=== PATIENT | female | born 1970 | race Caucasian/White ===

== ENCOUNTER 2018-07-09 16:08 | Emergency (ER) | payer SELFPAY ==
[~2018-07-09] VITALS: Ht 172.7 cm; Wt 54.9 kg
[2018-07-09] MEDS ORDERED: SODIUM CHLORIDE 0.9% 1000ML 1,000 ML IV STA (16:25)
[2018-07-09] MEDS ORDERED: ONDANSETRON HCL INJ 2 MG/ML VIAL IV STA (16:25)
[2018-07-09 16:56] LABS: BASOPHILS # (AUTO) 0.1 (0.0-0.1); BASOPHILS % 0.8 % (0.0-1.0); EOSINOPHILS # (AUTO) 0.3 (0.0-0.4); EOSINOPHILS % 2.5 % (0.0-6.0); HEMATOCRIT 36.8 % (34.2-44.1); HEMOGLOBIN 12.9 g/dL (12.0-16.0); LYMPHOCYTES # (AUTO) 1.4 (1.0-3.2); LYMPHOCYTES % 13.8 % (18.0-39.1); MEAN CORPUSCULAR HEMOGLOBIN 40.8 pg (28-32); MEAN CORPUSCULAR HGB CONC 35.1 g/dL (31-35); MEAN CORPUSCULAR VOLUME 116.5 fL (81-99); MONOCYTES # (AUTO) 0.5 (0.2-0.8); NEUTROPHILS # (AUTO) 8.1 (2.1-6.9); NEUTROPHILS % 77.4 % (38.7-80.0); PLATELET COUNT 266 x10e3/uL (140-360); RED BLOOD COUNT 3.16 x10e6/uL (3.6-5.1); RED CELL DISTRIBUTION WIDTH 12.9 % (11.7-14.4)
[2018-07-09 16:58] LABS: BILIRUBIN,URINE NEGATIVE (NEGATIVE); CLARITY,URINE SL CLOUDY (CLEAR); COLOR,URINE YELLOW (YELLOW); KETONES,URINE 1+ (NEGATIVE); LEUKOCYTE ESTERASE ,URINE TRACE (NEGATIVE); NITRITE,URINE NEGATIVE (NEGATIVE); PROTEIN,URINE DIPSTICK NEGATIVE (NEGATIVE); URINE UROBILINOGEN 0.2 mg/dL (0.2 - 1)
[2018-07-09 17:06] LABS: BACTERIA,URINE FEW /HPF; EPITHELIAL CELLS,URINE FEW /LPF; RENAL EPITHELIAL CELLS,URINE RARE
[2018-07-09 17:12] LABS: ALANINE AMINOTRANSFERASE 28 IU/L (0-55); ALBUMIN 4.1 g/dL (3.5-5.0); ALBUMIN/GLOBULIN RATIO 1.6 (0.8-2.0); ALKALINE PHOSPHATASE 78 IU/L (40-150); AMYLASE 80 U/L (25-125); ANION GAP 16.8 mmol/L (8-16); BLOOD UREA NITROGEN 7 mg/dL (7-26); BUN/CREATININE RATIO 9 (6-25); CALCIUM 10.1 mg/dL (8.4-10.2); CARBON DIOXIDE 22 mmol/L (22-29); CHLORIDE 101 mmol/L (98-107); CREATININE, SERUM 0.74 mg/dL (0.57-1.11); EST GLOMERULAR FILTRATION RATE > 60 ML/MIN (60-); GLUCOSE 90 mg/dL (74-118); LIPASE 49 U/L (8-78); POTASSIUM 3.8 mmol/L (3.5-5.1); SODIUM 136 mmol/L (136-145)
[2018-07-09] MEDS ORDERED: LORAZEPAM 1 MG TAB PO PRN (18:00)
[2018-07-09 18:24] VITALS: BP 142/88
== END 2018-07-09 18:30 | disposition home or self-care (01) ==
LOC: ER 16:08
DX: R11.2 Nausea with vomiting, unspecified (principal); R19.7 Diarrhea, unspecified; K52.9 Noninfective gastroenteritis and colitis, unspecified; F41.1 Generalized anxiety disorder; F31.9 Bipolar disorder, unspecified; F43.10 Post-traumatic stress disorder, unspecified
CPT/HCPCS: 36415; 80053; 81001; 82150; 83690; 85025; 99284; J7030; J2405

== ENCOUNTER 2018-08-17 12:33 | Emergency (ER) | payer SELFPAY ==
[~2018-08-17] VITALS: Ht 172.7 cm; Wt 54.9 kg
--- OUTSIDE RECORDS SUMMARY | 2018-08-17 12:35 | XMS REPORT | Clinical Summary ---
Author Author [facility] Address Unknown Phone Unavailable Care Team Providers Care Client Success Director Name Role Phone PCP Unavailable Allergies No Known Allergies Current Medications Not on file Active Problems Not on file Encounters Date Type Specialty Care Team Description 06/12/2018 Emergency Emergency Medicine after 08/16/2017 Social History Tobacco Use Types Packs/Day Years Used Date Never Assessed Sex Assigned at Date Recorded Not on file Last Filed Vital Signs Vital Sign Reading Time Taken Blood Pressure 120/85 06/12/2018 5:52 AM CDT Pulse 97 06/12/2018 5:52 AM CDT Temperature 37 C (98.6 F) 06/12/2018 5:52 AM CDT Respiratory Rate 18 06/12/2018 5:52 AM CDT Oxygen Saturation 98% 06/12/2018 5:52 AM CDT Inhaled Oxygen - - Concentration Weight - - Height - - Body Mass Index - - Plan of Treatment Health Maintenance Due Date Last Done Comments Cervical Cancer Scrn (3 1991 Yrs) Breast Cancer Scrn 2010 (Yearly) IMM Influenza Seasonal 07/05/2018 Oct to December (>/=19 yrs) Results Not on fileafter 08/16/2017
--- OUTSIDE RECORDS SUMMARY | 2018-08-17 12:35 | XMS REPORT ---
Author Author [facility] Address Unknown Phone Unavailable Care Team Providers Care Ticket Printer Name Role Phone Unavailable Unavailable Payers Payer Name Policy Type Policy Number Effective Date Expiration Date Problems This patient has no known problems. Allergies, Adverse Reactions, Alerts Allergy Name Allergy Type Status Severity Reaction(s) Onset Date Inactive Date Treating Clinician Comments No Known Allergies DA Active U 2018-06-20 00:00:00 No Known Allergies DA Active U 2018-06-16 00:00:00 No Known Allergies DA Active U 2018-06-04 00:00:00 No Known Allergies DA Active U 2018-05-21 00:00:00 Medications This patient has no known medications. Encounters Start Date/Time End Date/Time Encounter Type Admission Type Attending Clinicians Care Facility Care Department Encounter ID 2018-06-12 05:51:00 2018-06-12 05:51:00 Emergency [facility] [id number]
[2018-08-17] MEDS ORDERED: CYCLOBENZAPRINE HCL 10 MG TAB PO ONE (14:30)
[2018-08-17] MEDS ORDERED: KETOROLAC TROMETHAMINE 60 MG/2 ML VIAL IM ONE (14:30)
[2018-08-17 15:08] VITALS: BP 114/89
== END 2018-08-17 15:06 | disposition home or self-care (01) ==
LOC: ER 12:33
DX: G44.219 Episodic tension-type headache, not intractable (principal); R68.84 Jaw pain
CPT/HCPCS: 36415; 82948; 99283; J1885

== ENCOUNTER 2018-08-23 12:15 | Emergency (ER) | payer SELFPAY ==
[~2018-08-23] VITALS: Ht 172.7 cm; Wt 56.7 kg
--- OUTSIDE RECORDS SUMMARY | 2018-08-23 12:17 | XMS REPORT | Clinical Summary ---
Author Author [facility] Organization [facility] Address Unknown Phone Unavailable Care Team Providers Care Chlorine Operator Name Role Phone PCP Unavailable Allergies No Known Allergies Current Medications Not on file Active Problems Not on file Encounters Date Type Specialty Care Team Description 06/12/2018 Emergency Emergency Medicine after 08/22/2017 Social History Tobacco Use Types Packs/Day Years [...] December (>/=19 yrs) Results Not on fileafter 08/22/2017
--- OUTSIDE RECORDS SUMMARY | 2018-08-23 12:23 | XMS REPORT | Clinical Summary ---
Author Author [facility] Organization [facility] Address Unknown Phone Unavailable Care Team Providers Care Truck Washer Name Role Phone PCP Unavailable Allergies No [...]
[2018-08-23] MEDS ORDERED: SEROQUEL25 MG PO (12:35)
[2018-08-23] MEDS ORDERED: LITHIUM CARBON300 MG PO (12:35)
[2018-08-23] MEDS ORDERED: EFFEXOR XR150 MG (12:35)
== END 2018-08-23 14:30 | disposition left against medical advice (07) ==
LOC: ER 12:22
DX: R51 Headache (principal)

== ENCOUNTER 2018-11-22 08:03 | Emergency (ER) | payer SELFPAY ==
[~2018-11-22] VITALS: Ht 172.7 cm; Wt 56.7 kg
[~2018-11-22 08:03] MED LIST: EFFEXOR XR150 MG; LITHIUM CARBON300 MG PO; SEROQUEL25 MG PO
--- OUTSIDE RECORDS SUMMARY | 2018-11-22 08:05 | XMS REPORT | Clinical Summary ---
Author Author [facility] Organization [facility] Address Unknown Phone Unavailable Care Team Providers Care Molded Goods Controls Operator Name Role Phone PCP Unavailable Allergies No Known Allergies Medications Not on file Active Problems Not on file Encounters Care Team Description Date Type Specialty 06/12/2018 Emergency Emergency Medicine after 11/21/2017 Social History Date Tobacco Use Types Packs/Day Years Used Never Assessed Sex Assigned at Date Recorded Not on file Industry Job Start Date Occupation Not on file Not on file Not on file Travel End Travel History Travel Start No recent travel history available. Last Filed Vital Signs Time Taken Vital Sign Reading 06/12/2018 5:52 AM CDT Blood Pressure 120/85 06/12/2018 5:52 AM CDT Pulse 97 06/12/2018 5:52 AM CDT Temperature 37 C (98.6 F) 06/12/2018 5:52 AM CDT Respiratory Rate 18 06/12/2018 5:52 AM CDT Oxygen Saturation 98% - Inhaled Oxygen - Concentration - Weight - - Height - - Body Mass Index - Plan of Treatment Health Maintenance Due Date Last Done Comments Cervical Cancer Scrn (3 1991 Yrs) Breast Cancer Scrn 2010 (Yearly) IMM Influenza Seasonal 07/05/2018Jul to December (>/=19 yrs) Results Not on fileafter 11/21/2017 Insurance Type Payer Benefit Subscriber ID Effective Phone Address Plan / Dates Group [employer] xxxxxxx 2018 [address] - [address] [address] (Self)
--- NOTE | 2018-11-22 08:21 | NUR ---
NOTIFIED ANIMAL CONTROL OF DOG BITE, SPOKE WITH NATE, PATIENT REPORTED INCIDENT HAPPENED AT APPROX 0530 TODAY, SMALL MALE "DARK SEARS [place] TYPE DOG" WEARING A COLLAR.
[2018-11-22] MEDS ORDERED: TETANUS/DIPHTHERIA TOX ADULT 0.5 ML SYR IM ONE (09:15)
--- NOTE | 2018-11-22 09:41 | Diagnostic Imaging Report ---
EXAM: FOREARM RIGHT 2 VIEW DATE: 11/22/2018 9:03 AM INDICATION: Dog bite COMPARISON: None FINDINGS: 2 views of the right forearm shows no displaced fracture or dislocation involving the radius or ulna. Soft tissues anterior to the mid forearm are slightly irregular possibly indicating a site of injury. No radiopaque foreign body identified. IMPRESSION: No acute bony abnormality. Signed by: Dr. Gumaro Martin M.D. on 11/22/2018 9:38 AM
--- NOTE | 2018-11-22 09:50 | Diagnostic Imaging Report ---
Exam: Right hand 3 views left hand 3 views History: .Bilateral for body Comparison: None. Findings: Left hand: No acute, displaced fracture or dislocation. Joint space narrowing and dorsal subluxation of the third proximal interphalangeal joint with deformity of the proximal aspect of the middle phalanx presumably posttraumatic. No radiopaque foreign body. Right hand: No acute, displaced fracture or dislocation. No gross soft tissue defect or radiopaque foreign body. Soft tissues are unremarkable. Impression: No acute osseous abnormality. No radiopaque foreign bodies. Signed by: Dr. Esdras Valle M.D. on 11/22/2018 9:47 AM
[2018-11-22] MEDS ORDERED: BACTROBAN15 G1 TOP (10:50)
[2018-11-22] MEDS ORDERED: AUGMENTIN 875-1 EACH PO (10:50)
[2018-11-22 10:52] VITALS: BP 113/80
== END 2018-11-22 11:01 | disposition home or self-care (01) ==
LOC: ER 08:03
DX: S50.871A Other superficial bite of right forearm, initial encounter (principal); S60.571A Other superficial bite of hand of right hand, initial encounter; S60.572A Other superficial bite of hand of left hand, initial encounter; W54.0XXA Bitten by dog, initial encounter; Y92.008 Other place in unspecified non-institutional (private) residence as the place of occurrence of the external cause; F31.9 Bipolar disorder, unspecified
CPT/HCPCS: 90471; 90714; 99283

== ENCOUNTER 2019-01-10 05:52 | Emergency (ER) | payer SELFPAY ==
[~2019-01-10] VITALS: Ht 172.7 cm; Wt 56.7 kg
[~2019-01-10 05:52] MED LIST changes: +AUGMENTIN 875-1 EACH PO; +BACTROBAN15 G1 TOP
--- OUTSIDE RECORDS SUMMARY | 2019-01-10 05:56 | XMS REPORT | Clinical Summary ---
Author Author [facility] Organization [facility] Address Unknown Phone Unavailable Care Team Providers Care Dairy And Food Laboratory Assistant Name Role Phone PCP Unavailable Allergies No Known Allergies Medications Not on file Active Problems Not on file Encounters Care Team Description Date Type Specialty 06/12/2018 Emergency Emergency Medicine after 01/09/2018 Social History Date Tobacco Use Types Packs/Day [...] Cancer Scrn 2010 (Yearly) IMM Influenza Seasonal 07/05/2019Jul to December (>/=19 yrs) Results Not on fileafter 01/09/2018 Insurance Type Payer Benefit Subscriber ID Effective Phone Address Plan / Dates Group [employer] xxxxxxx 2018 [address]ED - [address] [address] (Self)
--- NOTE | 2019-01-10 06:15 | NUR ---
PT PROVIDED URINE SAMPLE, BEGAN YELLING AT IN LOBBY AND WALKED OUT. PTS SPOUSE APOLOGIZED FOR PTS BEHAVIOR, STATES, "SHE'S JUST BEEN HURTING."
== END 2019-01-10 06:25 | disposition left against medical advice (07) ==
LOC: ER 05:52
DX: K92.1 Melena (principal)